=== PATIENT | male | born 1995 | race Caucasian/White ===

== ENCOUNTER 2018-04-01 14:56 | Emergency (ER) | payer OTHER, SELFPAY ==
[2018-04-01 15:01] VITALS: BP 150/88; PULSE 102; RESP 16; O2SAT 99; BMI 30.7
[2018-04-01 16:00] VITALS: BP 132/67; PULSE 72; RESP 14; O2SAT 99
--- NOTE | 2018-04-01 16:06 | DI.RAD.S_ITS ---
PROCEDURE: XR CHEST 1V INDICATIONS: chest pain TECHNIQUE: One view of the chest was acquired. COMPARISON: None. FINDINGS: Surgical changes and devices: None. Lungs and pleura: No pleural effusions or pneumothorax. Lungs are clear. Mediastinum: Mediastinal contours appear normal. Heart size is normal. Bones and chest wall: No suspicious bony lesions. Overlying soft tissues appear unremarkable. IMPRESSION: No acute pulmonary process. Dictated by: Kristina Chun M.D. on 04/01/2018 at 17:23 Approved by: Kristina Chun M.D. on 04/01/2018 at 17:24
--- NOTE | 2018-04-01 16:07 | DI.CT.S_ITS ---
PROCEDURE: CT HEAD/BRAIN WO CON INDICATIONS: resolved r arm and leg weakness TECHNIQUE: Noncontrast 4.5 mm thick angled axial sections acquired from the foramen magnum to the vertex, with coronal and sagittal reformats. For radiation dose reduction, the following was used: automated exposure control, adjustment of mA and/or kV according to patient size. COMPARISON: None. FINDINGS: Image quality: Excellent. CSF spaces: Basal cisterns are patent. No extra-axial fluid collections. Ventricles are normal in size and shape. Brain: No midline shift. No intracranial masses or hemorrhage. [place]-white matter interface is normal. Skull and face: Calvarium and visualized facial bones are intact, without suspicious lesions. Sinuses: Visualized sinuses and mastoids are clear. IMPRESSION: 1. No acute intracranial process. Dictated by: Kristina Chun M.D. on 04/01/2018 at 17:22 Approved by: Kristina Chun M.D. on 04/01/2018 at 17:23
[2018-04-01 17:33] LABS: Add Manual Diff / Slide Review NO; Basophils Percent Auto 0.3 % (0-2); Eosinophils Percent Auto 0.8 % (2-4); Hematocrit 42.8 % (41-53); Hemoglobin 14.9 g/dL (13.5-17.5); Lymphocytes Percent Auto 10.6 % (25-40); Mean Corpuscular HGB Conc 34.7 % (30-36); Mean Corpuscular Hemoglobin 31.3 PG (26-34); Mean Corpuscular Volume 90.2 fL (80-100); Monocytes Percent Auto 5.7 % (3-14); Neutrophils Absolute Auto 11500 /uL (3000-5900); Neutrophils Percent Auto 82.6 % (50-75); Platelet Count 351 X10^3/uL (150-400); Red Blood Cell Count 4.75 X10^6/uL (4.5-5.9); Red Cell Distribution Width 12.7 % (11.6-14.8)
[2018-04-01 17:42] LABS: Blood Urea Nitrogen 16 mg/dL (9-20); Calcium 9.6 mg/dL (8.4-10.2); Carbon Dioxide 28 mmol/L (22-32); Chloride 100 mmol/L (98-107); Estimated Glomerular Filt Rate > 60.0 mL/min (>60); Glucose 108 mg/dL (70-100); HEMOLYSIS < 15 (0-50); Potassium 4.5 mmol/L (3.4-5.1); Sodium 140 mmol/L (137-145)
[2018-04-01 17:56] LABS: Troponin I < 0.012 ng/mL (0.01-0.034)
--- NOTE | 2018-04-01 18:05 | ED_ITS ---
HPI - Dizziness General Chief Complaint: Dizziness Stated Complaint: RIGHT SIDE FACE SWELLING AND LEG NUMBNESS Time Seen by Provider: 04/01/18 15:45 History of Present Illness HPI Narrative: HPI 23-year-old male presents for evaluation of resolved chest pain, right hand paresthesias, and mild subjective persistent sensation of right cheek fullness/ tingling. Patient was driving his car when he felt sudden onset chest tightness that lasted for upwards of 5 minutes, this was accompanied by right arm paresthesias which are now resolved. Patient is concerned he is having anxiety attack, patient notes these had one prior anxiety attack was somewhat different in nature. Patient has had mild persistent right cheek fullness sensation/ paresthesias that appears to have started at the same time. Patient said no prior neuroimaging. Patient denies pertinent family history. Patient has previously taken Adderall and trazodone. Unable to identify any provoking or relieving factors. M/S/F/SocHx notable for: please see HPI; remainder reviewed with patient and in chart. ROS: Negative constitutional, eye, cardiovascular, pulmonary, GI, , MSK, skin , neurologic, psychiatric, endocrine unless noted in the HPI. Exam Gen: Pleasant, non-toxic appearing, resting comfortably. HEENT: NC, AT, PEERL, EOMI. TMs clear bilaterally. Resp: Clear to auscultation bilaterally, normal work of breathing, no accessory muscle usage. Card: Regular rate and rhythm with no murmurs, rubs, or gallops, extremities warm and well perfused. GI: Non-tender to palpation throughout all quadrants, no focal tenderness at McBurney's point, negative Bhatt's sign, non-distended, no rebound or guarding. : No suprapubic tenderness to palpation. MSK: No visible deformities, strength and tone without visually appreciable deficit. Skin: Normal color with no visible lesions. Neuro: Gen AO x 3, no facial asymmetry, no gaze preference, no slurring of speech. CN II-III: pupils equal and reactive (4->2mm bilaterally); III, IV, : EOMI, V1-V3: sensation to touch bilaterally intact; VII: no facial asymmetry ( frown / smile); VIII: no nystagmus; X: phonation intact, uvula midline; XI: trapezius 5/5 bilaterally, XII: tongue midline. Cerebellar: no pronator drift, [id number] testing without dysmetria bilaterally, heel to lindquist without dysmetria bilaterally. Psych: Mood and affect appropriate. Labs / Imaging: WBC 14.0, Hb 14.9, Na 140, K 4.5, troponin < 0.012 CT head: no acute intracranial process. CXR: no acute cardiopulmonary disease process. Radiologist read pending. EKG: SR 84 bpm, no ST segment elevations or depressions, no LBBB. MDM Previous chart, nursing note, labs, imaging, and vitals reviewed. A: 23-year-old male presents for evaluation of resolved chest pain, right hand paresthesias, and mild subjective persistent sensation of right cheek fullness/ tingling. DDx: anxiety, arrhythmia, electrolyte abnormalities, complex migraine, CVA ( ischemic versus hemorrhagic) Evaluation: patient with nonspecific leukocytosis but no active signs of infection. Chest x-ray clear, CT head unremarkable, ECG without evidence of ischemia or conduction abnormalities, troponin negative. Discharge with PCP follow-up recommended. Impression: paresthesias, chest pain. (please reference below for remainder of encounter information) Related Data Allergies Allergy/AdvReac Type Severity Reaction Status Date / Time No Known Drug Allergies Allergy Verified 04/01/18 15:01 [facility] Social History Smoking Status: Current some day smoker Exam Initial Vital Signs Initial Vital Signs: Vital Signs Pulse Rate 102 H 04/01/18 15:01 Respiratory Rate 16 04/01/18 15:01 Blood Pressure 150/88 H 04/01/18 15:01 Pulse Oximetry 99 04/01/18 15:01 Course Orders Ordered: ED Orders 04/01/18 16:06 XR chest 1V Stat 04/01/18 16:07 CT head/brain wo con Stat EKG-12 Lead Stat 04/01/18 17:20 Basic Metabolic Panel Stat Complete Blood Count AUTO DIFF Stat Troponin I Stat Vital Signs - 8 hr 04/01/18 15:01 04/01/18 16:00 Pulse Rate 102 H 72 Respiratory Rate 16 14 Blood Pressure 150/88 H Blood Pressure [Left Arm] 132/67 H Pulse Oximetry 99 99 MDM - Dizziness Lab Data Result diagrams: 04/01/18 17:20 04/01/18 17:20 Lab Results 04/01/18 04/01/18 Range/Units 17:20 17:20 WBC 14.0 H (4.5-11.0) X10^3/uL RBC 4.75 (4.5-5.9) X10^6/uL Hgb 14.9 (13.5-17.5) g/dL Hct 42.8 (41-53) % MCV 90.2 (80-100) fL MCH 31.3 (26-34) PG MCHC 34.7 (30-36) % RDW 12.7 (11.6-14.8) % Plt Count 351 (150-400) X10^3/uL Neut % (Auto) 82.6 H (50-75) % Lymph % (Auto) 10.6 L (25-40) % [place] % (Auto) 5.7 (3-14) % Eos % (Auto) 0.8 L (2-4) % Baso % (Auto) 0.3 (0-2) % Neut # (Auto) 86800 H (2634-9094) /uL Sodium 140 (137-145) mmol/L Potassium 4.5 (3.4-5.1) mmol/L Chloride 100 (98-107) mmol/L Carbon Dioxide 28 (22-32) mmol/L BUN 16 (9-20) mg/dL Creatinine 1.00 (0.66-1.25) mg/dL Estimated GFR > 60.0 (>60) mL/min BUN/Creatinine Ratio 16.0 (6-22) Glucose 108 H (70-100) mg/dL Calcium 9.6 (8.4-10.2) mg/dL Troponin I < 0.012 (0.01-0.034) ng/mL
[2018-04-01 18:20] VITALS: BP 129/71; PULSE 74; RESP 12; O2SAT 99
== END 2018-04-01 18:23 | disposition home or self-care (01) ==
PROVIDERS: Emergency Provider Emergency Medicine
DX: R20.2 Paresthesia of skin (principal)
CPT/HCPCS: 36415; 70450; 71045; 80048; 81003; 84484; 85025; 93005; 93041; 99283; 99285